=== PATIENT | male | born 1950 | race Caucasian/White ===

== ENCOUNTER 2020-09-22 11:36 | Inpatient (IN) | payer OTHER ==
[~2020-09-22] VITALS: Ht 170.2 cm; Wt 100.5 kg
[2020-09-22 13:42] LABS: Basophils # (auto) 0 10 ^3/uL (0-0.2); Basophils % (auto) 0.2 % (0.0-2.0); Eosinophils # (auto) 0 10 ^3/uL (0-0.8); Eosinophils % (auto) 0.1 % (0.0-7.0); Hematocrit 39.5 % (41.0-53.0); Hemoglobin 13.6 g/dL (13.5-17.5); Lymphocytes # (auto) 1.3 10 ^3/uL (0.4-5.4); Lymphocytes % (auto) 7.5 % (10.0-50.0); Mean Corpuscular Hgb Conc. 34.4 g/dL (32.0-36.0); Monocytes # (auto) 1.2 10 ^3/uL (0-1.3); Monocytes % (auto) 6.8 % (0.0-12.0); Neutrophils # (auto) 14.9 10 ^3/uL (1.6-8.6); Neutrophils % (auto) 85.4 % (37.0-80.0); Nucleated Red Blood Cells % 0.2 %; Platelet Count (auto) 261 10^3/uL (140-450); Red Blood Cells 4.25 10^6/uL (4.5-5.90); Red Cell Distribution Width 14.2 % (11.8-14.3); White Blood Cell 17.4 10^3/uL (4.4-10.8)
[2020-09-22 13:48] LABS: Urine Bacteria FEW /hpf (None Seen); Urine Blood 3+ /uL (Negative); Urine Budding Yeast OCCASIONAL /hpf (None Seen); Urine Specific Gravity 1.032 (1.001-1.035); Urine WBC 12 /hpf (0 - 3)
[2020-09-22 13:57] LABS: Albumin 2.4 g/dL (3.4-5.0); Calcium 9.2 mg/dL (8.5-10.1); Potassium 4.5 mmol/L (3.5-5.1)
[2020-09-22 14:07] LABS: BUN/Creatinine Ratio 23.6; Bilirubin, Total 0.8 mg/dL (0.2-1.0); Total Protein 8.6 g/dL (6.4-8.2)
[2020-09-22] MEDS ORDERED: InsuLIN R (HUMAN) 100 UNITS in SODIUM CHL 0.9% 99 ML IV SCH (17:45)
[2020-09-22] MEDS ORDERED: DEXTROSE (50%) 50ML SYRG IV PRN (17:45)
[2020-09-22] MEDS ORDERED: NITROGLYCERIN 0.4 MG SL TAB SL PRN (17:45)
[2020-09-22] MEDS ORDERED: REMDESIVIR PER PHARMACY 0 ML IV SCH (17:45)
[2020-09-22] MEDS ORDERED: ONDANSETRON HCL 4 MG/2 ML VIAL IV PRN (17:45)
[2020-09-22] MEDS ORDERED: ACETAMINOPHEN 500 MG TAB PO PRN (17:45)
[2020-09-22] MEDS ORDERED: MORPHINE SULF INJ 2 MG/ML SYRINGE 1ML IV PRN (17:45)
[2020-09-22] MEDS ORDERED: INSULIN LANTUS (GLARGINE) 1 /0.01ml (100units/ml) SC ONE (17:45)
[2020-09-22] MEDS: BUDESONIDE (INHALATION) 180 MCG IH IN SCH (18:14)
[2020-09-22] MEDS: ACCU-CHEK COMFORT CURVE STRIP VI SCH ×4 (18:20→22:53)
[2020-09-22] MEDS: LACTATED RINGER'S 1,000 ML IV SCH (18:20)
[2020-09-22 19:46] LABS: Magnesium 2.8 mg/dL (1.6-2.6)
[2020-09-22 19:51] LABS: Phosphorus 4.4 mg/dL (2.5-4.90)
[2020-09-22 20:12] LABS: CRP High Sensitivity 13.6 mg/dL (< 0.3)
[2020-09-22 21:28] LABS: INR 1.18 (0.9-1.15); Partial Thromboplastin Time 27.1 sec (23.0-31.2)
[2020-09-22] MEDS ORDERED: ENOXAPARIN SOD 120 MG/0.8 ML SYRINGE SC SCH (22:00)
[2020-09-22] MEDS: FAMOTIDINE (10MG/ML) 2ML VL IV SCH (22:57)
[2020-09-23] MEDS: ACCU-CHEK COMFORT CURVE STRIP VI SCH ×10 (02:00→21:57)
[2020-09-23] MEDS: MORPHINE SULF INJ 2 MG/ML SYRINGE 1ML IV PRN ×2 (04:00→08:31)
[2020-09-23] MEDS ORDERED: HEPARIN SODIUM (PORCINE) 5000 UNITS/ML 1ML VIAL IV ONE ×2 (05:00→21:45)
[2020-09-23] MEDS ORDERED: HEPARIN SODIUM (PORCINE) 5000 UNITS/ML 1ML VIAL ONE (05:29)
[2020-09-23] MEDS ORDERED: HEPARIN DRIP/D5W 100UNITS/ML 250 ML IV SCH ×4 (05:30→20:00)
[2020-09-23] MEDS: LACTATED RINGER'S 1,000 ML IV SCH ×2 (06:01→16:56)
[2020-09-23 06:07] LABS: Basophils # (auto) 0.1 10 ^3/uL (0-0.2); Basophils % (auto) 0.6 % (0.0-2.0); Eosinophils # (auto) 0.1 10 ^3/uL (0-0.8); Eosinophils % (auto) 0.4 % (0.0-7.0); Hematocrit 39.6 % (41.0-53.0); Hemoglobin 13.7 g/dL (13.5-17.5); Lymphocytes # (auto) 1.2 10 ^3/uL (0.4-5.4); Lymphocytes % (auto) 8.8 % (10.0-50.0); Mean Corpuscular Hemoglobin 31.7 pg (28.0-32.0); Mean Corpuscular Hgb Conc. 34.7 g/dL (32.0-36.0); Mean Corpuscular Volume 91.5 fL (80.0-100.0); Monocytes # (auto) 0.9 10 ^3/uL (0-1.3); Monocytes % (auto) 6.5 % (0.0-12.0); Neutrophils # (auto) 11.4 10 ^3/uL (1.6-8.6); Neutrophils % (auto) 83.7 % (37.0-80.0); Nucleated Red Blood Cells % 0.1 %; Platelet Count (auto) 124 10^3/uL (140-450); Red Blood Cells 4.33 10^6/uL (4.5-5.90); Red Cell Distribution Width 14.2 % (11.8-14.3); White Blood Cell 13.7 10^3/uL (4.4-10.8)
[2020-09-23] MEDS: BUDESONIDE (INHALATION) 180 MCG IH IN SCH ×2 (06:32→21:35)
[2020-09-23 06:52] LABS: INR 1.24 (0.9-1.15); Partial Thromboplastin Time 31.9 sec (23.0-31.2)
[2020-09-23] MEDS ORDERED: IVERMECTIN 3 MG TAB PO ONE (07:00)
[2020-09-23] MEDS: ASCORBIC ACID 1,000 MG TAB PO SCH (07:57)
[2020-09-23] MEDS: ZINC SULFATE 220mg CAP or TAB PO SCH (07:57)
[2020-09-23] MEDS: CHOLECALCIFEROL (VITD3) 2,000 UNIT CAP/TAB PO SCH (07:57)
[2020-09-23] MEDS: FAMOTIDINE (10MG/ML) 2ML VL IV SCH (07:57)
[2020-09-23] MEDS: DexAMETHasone SOD PHOS 10MG/1ML VIAL INJ IV SCH (07:57)
[2020-09-23] MEDS ORDERED: LIDOCAINE 2%HCL (LOCAL ANESTH.) INJ 20ML MDV ONE ×2 (08:18→10:26)
[2020-09-23] MEDS ORDERED: IODIXANOL 320MG/ML 100ML BTL IV ONE (08:18)
[2020-09-23] MEDS ORDERED: cefTRIAXone 1GM/50ML D5W 50 ML IV SCH (09:00)
[2020-09-23] MEDS ORDERED: INSULIN LANTUS (GLARGINE) 1 /0.01ml (100units/ml) SC SCH (10:00)
[2020-09-23] MEDS ORDERED: AZITHROMYCIN 500MG/ 250ML 250 ML IV SCH (10:00)
[2020-09-23 10:07] LABS: Albumin 2.1 g/dL (3.4-5.0); Calcium 8.7 mg/dL (8.5-10.1); Potassium 3.9 mmol/L (3.5-5.1)
[2020-09-23 10:12] LABS: BUN/Creatinine Ratio 26.8; Bilirubin, Total 0.7 mg/dL (0.2-1.0); Total Protein 7.4 g/dL (6.4-8.2)
[2020-09-23] MEDS ORDERED: ANGIOMAX 250 MG VIAL IV ONE ×2 (10:27→12:09)
[2020-09-23] MEDS ORDERED: VERAPAMIL 2.5MG/ML INJ 2ML VIAL IV ONE (10:27)
[2020-09-23] MEDS ORDERED: MIDAZOLAM HCL 1MG/1ML-2 ML VIAL ONE (10:28)
[2020-09-23] MEDS ORDERED: fentaNYL CITRATE 100 MCG/2 ML VL ONE (10:28)
[2020-09-23] MEDS ORDERED: SODIUM CHL 0.9% 50 ML ONE ×2 (10:29→12:09)
[2020-09-23] MEDS ORDERED: DEXTROSE (50%) 50ML SYRG IV PRN ×2 (11:00→19:15)
[2020-09-23] MEDS: InsuLIN REG 1unit/0.01ml Soln (100units/ml) SC SCH ×2 (11:30→17:44)
[2020-09-23] MEDS ORDERED: EPTIFIBATIDE INJ (2MG/ML) 10ML VIAL IV ONE ×2 (12:27→12:30)
[2020-09-23] MEDS ORDERED: NITROGLYCERIN 0.4 MG SL TAB SL PRN (13:00)
[2020-09-23] MEDS ORDERED: MORPHINE SULF INJ 2 MG/ML SYRINGE 1ML IV PRN (13:00)
[2020-09-23] MEDS ORDERED: ACETAMINOPHEN 500 MG TAB PO PRN (13:00)
[2020-09-23] MEDS ORDERED: EPTIFIBATIDE DRIP(0.75MG/ML) 100 ML IV SCH (13:00)
[2020-09-23] MEDS ORDERED: EPTIFIBATIDE DRIP(0.75MG/ML) 100 ML IV ONE (13:19)
[2020-09-23] MEDS ORDERED: REMDESIVIR 200 MG in NS 210ml LOADING DOSE ADULT IV ONE (15:00)
[2020-09-23 16:00] VITALS: BP 101/59
[2020-09-23] MEDS ORDERED: TEST1INJ9 (16:33)
[2020-09-23] MEDS ORDERED: InsuLIN REG 1unit/0.01ml Soln (100units/ml) SC ONE (17:45)
[2020-09-23] MEDS ORDERED: SODIUM CHLORIDE 0.9% 1,000 ML IV ONE (19:15)
[2020-09-23] MEDS ORDERED: cefTRIAXone 1GM/50ML D5W 50 ML IV ONE (19:30)
[2020-09-23] MEDS: ALBUTEROL SULF HFA 90MCG INH 200DOSE IN PRN (21:36)
[2020-09-23] MEDS ORDERED: InsuLIN REG 1unit/0.01ml Soln (100units/ml) SC SCH (22:00)
[2020-09-23 22:17] LABS: INR 1.41 (0.9-1.15); Partial Thromboplastin Time 52.6 sec (23.0-31.2)
[2020-09-23] MEDS: DOXYCYCLINE 100MG/250ML 250 ML IV SCH (22:40)
[2020-09-23] MEDS: HEPARIN DRIP/D5W 100UNITS/ML 250 ML IV SCH (22:56)
[2020-09-24] VITALS (11 sets, daily range): BP systolic 106–128; BP diastolic 65–77
[2020-09-24] MEDS: InsuLIN REG 1unit/0.01ml Soln (100units/ml) SC SCH ×4 (00:11→16:53)
[2020-09-24 02:44] LABS: Hematocrit 34.2 % (41.0-53.0); Hemoglobin 11.9 g/dL (13.5-17.5); Mean Corpuscular Hemoglobin 31.9 pg (28.0-32.0); Mean Corpuscular Hgb Conc. 34.9 g/dL (32.0-36.0); Mean Corpuscular Volume 91.2 fL (80.0-100.0); Platelet Count (auto) 209 10^3/uL (140-450); Red Blood Cells 3.75 10^6/uL (4.5-5.90); White Blood Cell 20.5 10^3/uL (4.4-10.8)
[2020-09-24 02:47] LABS: Blast Cells 0; Myelocytes % 0; Promyelocytes % 0; Reactive Lymphocytes 0
[2020-09-24 02:49] LABS: Basophils % (manual) 0 (0.0-2.0); Eosinophils % (manual) 0 (0-7)
[2020-09-24 03:11] LABS: INR 1.41 (0.9-1.15)
[2020-09-24 03:14] LABS: Partial Thromboplastin Time 112.1 sec (23.0-31.2)
[2020-09-24 03:29] LABS: Band Neutrophils % (manual) 23; Lymphocytes % (manual) 12 (10.0-50.0); Metamyelocytes % 3; Monocytes % (manual) 1 (0-12)
[2020-09-24] MEDS: ACCU-CHEK COMFORT CURVE STRIP VI SCH ×3 (06:19→16:51)
[2020-09-24] MEDS: BUDESONIDE (INHALATION) 180 MCG IH IN SCH ×3 (06:32→20:08)
[2020-09-24] MEDS: ALBUTEROL SULF HFA 90MCG INH 200DOSE IN PRN ×2 (06:32→20:09)
[2020-09-24 07:01] LABS: Hematocrit 34.1 % (41.0-53.0); Mean Corpuscular Hemoglobin 32.3 pg (28.0-32.0); Mean Corpuscular Hgb Conc. 35.3 g/dL (32.0-36.0); Mean Corpuscular Volume 91.4 fL (80.0-100.0); Platelet Count (auto) 197 10^3/uL (140-450); Red Blood Cells 3.73 10^6/uL (4.5-5.90); Red Cell Distribution Width 14.3 % (11.8-14.3); White Blood Cell 19.4 10^3/uL (4.4-10.8)
[2020-09-24 07:13] LABS: Basophils % (manual) 0 (0.0-2.0); Blast Cells 0; Eosinophils % (manual) 0 (0-7); Promyelocytes % 0; Reactive Lymphocytes 0
[2020-09-24 07:18] LABS: INR 1.34 (0.9-1.15); Partial Thromboplastin Time 62.4 sec (23.0-31.2)
[2020-09-24 07:29] LABS: Albumin 2.1 g/dL (3.4-5.0); Potassium 4.2 mmol/L (3.5-5.1)
[2020-09-24 07:33] LABS: Bilirubin, Total 0.4 mg/dL (0.2-1.0); Total Protein 6.7 g/dL (6.4-8.2)
[2020-09-24 08:57] LABS: Band Neutrophils % (manual) 3; Lymphocytes % (manual) 12 (10.0-50.0); Metamyelocytes % 1; Monocytes % (manual) 5 (0-12); Myelocytes % 1
[2020-09-24] MEDS: DOXYCYCLINE 100MG/250ML 250 ML IV SCH ×2 (09:03→19:28)
[2020-09-24] MEDS: DexAMETHasone SOD PHOS 10MG/1ML VIAL INJ IV SCH (09:03)
[2020-09-24] MEDS: FAMOTIDINE (10MG/ML) 2ML VL IV SCH (09:04)
[2020-09-24] MEDS: ZINC SULFATE 220mg CAP or TAB PO SCH (09:04)
[2020-09-24] MEDS: ASCORBIC ACID 1,000 MG TAB PO SCH (09:04)
[2020-09-24] MEDS: CHOLECALCIFEROL (VITD3) 2,000 UNIT CAP/TAB PO SCH (09:04)
[2020-09-24 09:52] LABS: Hematocrit 30.9 % (41.0-53.0); Hemoglobin 10.6 g/dL (13.5-17.5); Mean Corpuscular Hemoglobin 31.6 pg (28.0-32.0); Mean Corpuscular Hgb Conc. 34.3 g/dL (32.0-36.0); Mean Corpuscular Volume 92.2 fL (80.0-100.0); Platelet Count (auto) 165 10^3/uL (140-450); Red Blood Cells 3.35 10^6/uL (4.5-5.90); White Blood Cell 18.3 10^3/uL (4.4-10.8)
[2020-09-24 10:01] LABS: Basophils % (manual) 0 (0.0-2.0); Blast Cells 0; Eosinophils % (manual) 0 (0-7); Metamyelocytes % 0; Myelocytes % 0; Promyelocytes % 0; Reactive Lymphocytes 0
[2020-09-24 10:16] LABS: INR 1.35 (0.9-1.15)
[2020-09-24 10:18] LABS: Partial Thromboplastin Time 95.7 sec (23.0-31.2)
[2020-09-24 10:32] LABS: Band Neutrophils % (manual) 1; Lymphocytes % (manual) 9 (10.0-50.0); Monocytes % (manual) 10 (0-12)
[2020-09-24] MEDS: INSULIN LANTUS (GLARGINE) 1 /0.01ml (100units/ml) SC SCH (11:13)
[2020-09-24] MEDS: cefTRIAXone 1GM/50ML D5W 50 ML IV SCH (11:51)
[2020-09-24] MEDS ORDERED: REMDESIVIR 100mg 100 MG in SODIUM CHL 0.9% 230 ML IV SCH (15:00)
[2020-09-24] MEDS: HEPARIN DRIP/D5W 100UNITS/ML 250 ML IV SCH (15:45)
[2020-09-24] MEDS ORDERED: REMDESIVIR 100mg 50 MG in SODIUM CHL 0.9% 240 ML IV ONE (16:00)
[2020-09-24 18:31] LABS: INR 1.24 (0.9-1.15); Partial Thromboplastin Time 61.9 sec (23.0-31.2)
[2020-09-24] MEDS: HYDROcodone-ACET 5/325MG TAB PO PRN (20:22)
[2020-09-25] VITALS: BP 128/69
[2020-09-25] MEDS: InsuLIN REG 1unit/0.01ml Soln (100units/ml) SC SCH ×5 (00:09→23:41)
[2020-09-25 01:20] LABS: INR 1.19 (0.9-1.15); Partial Thromboplastin Time 64.3 sec (23.0-31.2)
[2020-09-25] MEDS: HEPARIN DRIP/D5W 100UNITS/ML 250 ML IV SCH ×2 (01:50→09:26)
[2020-09-25] MEDS: ACCU-CHEK COMFORT CURVE STRIP VI SCH ×5 (05:47→23:41)
[2020-09-25] MEDS: ALBUTEROL SULF HFA 90MCG INH 200DOSE IN PRN ×2 (06:30→22:14)
[2020-09-25 06:46] LABS: Potassium 3.9 mmol/L (3.5-5.1)
[2020-09-25 06:47] LABS: Hematocrit 27.8 % (41.0-53.0); Hemoglobin 9.6 g/dL (13.5-17.5); Mean Corpuscular Hemoglobin 31.4 pg (28.0-32.0); Mean Corpuscular Hgb Conc. 34.4 g/dL (32.0-36.0); Mean Corpuscular Volume 91.2 fL (80.0-100.0); Platelet Count (auto) 169 10^3/uL (140-450); Red Blood Cells 3.05 10^6/uL (4.5-5.90); Red Cell Distribution Width 14.3 % (11.8-14.3); White Blood Cell 14.5 10^3/uL (4.4-10.8)
[2020-09-25 06:56] LABS: Basophils % (manual) 0 (0.0-2.0); Blast Cells 0; Eosinophils % (manual) 0 (0-7); Promyelocytes % 0; Reactive Lymphocytes 0
[2020-09-25 07:24] LABS: BUN/Creatinine Ratio 26.3; Bilirubin, Total 0.4 mg/dL (0.2-1.0); Calcium 7.9 mg/dL (8.5-10.1)
[2020-09-25] MEDS: DOXYCYCLINE 100MG/250ML 250 ML IV SCH ×2 (07:30→19:46)
[2020-09-25 07:57] LABS: INR 1.2 (0.9-1.15); Partial Thromboplastin Time 64.3 sec (23.0-31.2)
[2020-09-25 08:00] VITALS: BP 111/64
[2020-09-25] MEDS: FAMOTIDINE (10MG/ML) 2ML VL IV SCH (09:10)
[2020-09-25] MEDS: cefTRIAXone 1GM/50ML D5W 50 ML IV SCH (09:10)
[2020-09-25] MEDS: DexAMETHasone SOD PHOS 10MG/1ML VIAL INJ IV SCH (09:10)
[2020-09-25] MEDS: ASCORBIC ACID 1,000 MG TAB PO SCH (09:11)
[2020-09-25] MEDS: ZINC SULFATE 220mg CAP or TAB PO SCH (09:11)
[2020-09-25] MEDS: CHOLECALCIFEROL (VITD3) 2,000 UNIT CAP/TAB PO SCH (09:11)
[2020-09-25] MEDS: HYDROcodone-ACET 5/325MG TAB PO PRN (12:30)
[2020-09-25] MEDS: INSULIN LANTUS (GLARGINE) 1 /0.01ml (100units/ml) SC SCH (12:57)
[2020-09-25 13:45] LABS: Band Neutrophils % (manual) 4; Lymphocytes % (manual) 6 (10.0-50.0); Metamyelocytes % 1; Monocytes % (manual) 4 (0-12); Myelocytes % 3
[2020-09-25] MEDS ORDERED: MORPHINE SULF INJ 2 MG/ML SYRINGE 1ML IV PRN (14:30)
[2020-09-25 16:00] VITALS: BP 118/64
[2020-09-25] MEDS: MORPHINE SULF INJ 2 MG/ML SYRINGE 1ML IV PRN (20:28)
[2020-09-25] MEDS: BUDESONIDE (INHALATION) 180 MCG IH IN SCH (22:14)
[2020-09-26] VITALS: BP 124/66
[2020-09-26] MEDS: HEPARIN DRIP/D5W 100UNITS/ML 250 ML IV SCH ×2 (02:29→11:34)
[2020-09-26] MEDS: MORPHINE SULF INJ 2 MG/ML SYRINGE 1ML IV PRN ×3 (02:30→23:41)
[2020-09-26] MEDS: InsuLIN REG 1unit/0.01ml Soln (100units/ml) SC SCH ×3 (05:13→17:45)
[2020-09-26] MEDS: ACCU-CHEK COMFORT CURVE STRIP VI SCH ×4 (05:13→23:41)
[2020-09-26] MEDS: ALBUTEROL SULF HFA 90MCG INH 200DOSE IN PRN ×2 (06:50→20:14)
[2020-09-26] MEDS: BUDESONIDE (INHALATION) 180 MCG IH IN SCH ×2 (06:50→20:14)
[2020-09-26] MEDS: DOXYCYCLINE 100MG/250ML 250 ML IV SCH ×2 (06:55→19:30)
[2020-09-26 08:00] VITALS: BP 113/58
[2020-09-26] MEDS: cefTRIAXone 1GM/50ML D5W 50 ML IV SCH (08:47)
[2020-09-26 09:35] LABS: INR 1.15 (0.9-1.15); Partial Thromboplastin Time 47.4 sec (23.0-31.2)
[2020-09-26 09:36] LABS: Hematocrit 28.6 % (41.0-53.0); Hemoglobin 9.8 g/dL (13.5-17.5); Mean Corpuscular Hemoglobin 31.1 pg (28.0-32.0); Mean Corpuscular Hgb Conc. 34.2 g/dL (32.0-36.0); Mean Corpuscular Volume 90.9 fL (80.0-100.0); Platelet Count (auto) 255 10^3/uL (140-450); Red Blood Cells 3.14 10^6/uL (4.5-5.90); Red Cell Distribution Width 13.8 % (11.8-14.3); White Blood Cell 20.1 10^3/uL (4.4-10.8)
[2020-09-26 09:39] LABS: Potassium 3.6 mmol/L (3.5-5.1)
[2020-09-26 09:46] LABS: Basophils % (manual) 0 (0.0-2.0); Blast Cells 0; Promyelocytes % 0; Reactive Lymphocytes 0
[2020-09-26 09:47] LABS: Albumin 2.2 g/dL (3.4-5.0); BUN/Creatinine Ratio 23.5; Bilirubin, Total 0.5 mg/dL (0.2-1.0); Calcium 7.8 mg/dL (8.5-10.1); Total Protein 6.6 g/dL (6.4-8.2)
[2020-09-26] MEDS: ASCORBIC ACID 1,000 MG TAB PO SCH (10:25)
[2020-09-26] MEDS: ZINC SULFATE 220mg CAP or TAB PO SCH (10:25)
[2020-09-26] MEDS: CHOLECALCIFEROL (VITD3) 2,000 UNIT CAP/TAB PO SCH (10:26)
[2020-09-26] MEDS: FAMOTIDINE (10MG/ML) 2ML VL IV SCH (10:26)
[2020-09-26] MEDS: DexAMETHasone SOD PHOS 10MG/1ML VIAL INJ IV SCH (10:26)
[2020-09-26] MEDS: INSULIN LANTUS (GLARGINE) 1 /0.01ml (100units/ml) SC SCH (10:26)
[2020-09-26] MEDS ORDERED: HYDROmorphone HCL 2 MG/ML VL IV ONE (10:30)
[2020-09-26 13:20] LABS: Band Neutrophils % (manual) 3; Eosinophils % (manual) 2 (0-7); Metamyelocytes % 2; Monocytes % (manual) 2 (0-12); Myelocytes % 4
[2020-09-26 13:21] LABS: Lymphocytes % (manual) 4 (10.0-50.0)
[2020-09-26 15:31] VITALS: BP 158/75
[2020-09-26] MEDS: REMDESIVIR 100mg 100 MG in SODIUM CHL 0.9% 230 ML IV SCH (15:31)
[2020-09-26 16:01] VITALS: BP 120/77
[2020-09-26 17:06] VITALS: BP 147/84
[2020-09-26] MEDS ORDERED: InsuLIN REG 1unit/0.01ml Soln (100units/ml) SC ONE (18:00)
[2020-09-26 18:36] LABS: INR 1.12 (0.9-1.15); Partial Thromboplastin Time 69.9 sec (23.0-31.2)
[2020-09-27] VITALS: BP 130/7
[2020-09-27 01:31] LABS: INR 1.12 (0.9-1.15)
[2020-09-27] MEDS: InsuLIN REG 1unit/0.01ml Soln (100units/ml) SC SCH ×4 (01:32→18:06)
[2020-09-27 01:33] LABS: Partial Thromboplastin Time 80.1 sec (23.0-31.2)
[2020-09-27] MEDS: HEPARIN DRIP/D5W 100UNITS/ML 250 ML IV SCH ×3 (04:45→12:30)
[2020-09-27] MEDS: ACCU-CHEK COMFORT CURVE STRIP VI SCH ×3 (05:32→18:05)
[2020-09-27] MEDS: DOXYCYCLINE 100MG/250ML 250 ML IV SCH (06:39)
[2020-09-27] MEDS: ALBUTEROL SULF HFA 90MCG INH 200DOSE IN PRN ×2 (07:31→20:33)
[2020-09-27] MEDS: BUDESONIDE (INHALATION) 180 MCG IH IN SCH ×2 (07:31→20:32)
[2020-09-27 08:00] VITALS: BP 135/81
[2020-09-27 08:20] LABS: Basophils # (auto) 0.1 10 ^3/uL (0-0.2); Basophils % (auto) 0.3 % (0.0-2.0); Eosinophils # (auto) 0.1 10 ^3/uL (0-0.8); Eosinophils % (auto) 0.3 % (0.0-7.0); Hematocrit 25.7 % (41.0-53.0); Hemoglobin 8.8 g/dL (13.5-17.5); Lymphocytes # (auto) 1.7 10 ^3/uL (0.4-5.4); Mean Corpuscular Hemoglobin 31.2 pg (28.0-32.0); Mean Corpuscular Hgb Conc. 34.4 g/dL (32.0-36.0); Mean Corpuscular Volume 90.6 fL (80.0-100.0); Monocytes # (auto) 1.5 10 ^3/uL (0-1.3); Monocytes % (auto) 6.1 % (0.0-12.0); Neutrophils % (auto) 86.3 % (37.0-80.0); Nucleated Red Blood Cells % 0.1 %; Platelet Count (auto) 241 10^3/uL (140-450); Red Blood Cells 2.84 10^6/uL (4.5-5.90); Red Cell Distribution Width 14.5 % (11.8-14.3); White Blood Cell 24.3 10^3/uL (4.4-10.8)
[2020-09-27 08:37] LABS: INR 1.1 (0.9-1.15); Partial Thromboplastin Time 66.7 sec (23.0-31.2)
[2020-09-27 08:42] LABS: Calcium 7.8 mg/dL (8.5-10.1); Potassium 3.9 mmol/L (3.5-5.1)
[2020-09-27 08:46] LABS: Bilirubin, Total 0.5 mg/dL (0.2-1.0); Total Protein 6.4 g/dL (6.4-8.2)
[2020-09-27] MEDS: CHOLECALCIFEROL (VITD3) 2,000 UNIT CAP/TAB PO SCH (10:00)
[2020-09-27] MEDS: cefTRIAXone 1GM/50ML D5W 50 ML IV SCH (10:00)
[2020-09-27] MEDS: FAMOTIDINE (10MG/ML) 2ML VL IV SCH (10:00)
[2020-09-27] MEDS: INSULIN LANTUS (GLARGINE) 1 /0.01ml (100units/ml) SC SCH (10:00)
[2020-09-27] MEDS: ZINC SULFATE 220mg CAP or TAB PO SCH (10:00)
[2020-09-27] MEDS: ASCORBIC ACID 1,000 MG TAB PO SCH (10:00)
[2020-09-27] MEDS: DexAMETHasone SOD PHOS 10MG/1ML VIAL INJ IV SCH (10:00)
[2020-09-27 12:38] LABS: INR 1.08 (0.9-1.15)
[2020-09-27] MEDS ORDERED: PIPERACILLIN-TAZOB 3.375GM 100 ML IV ONE (13:00)
[2020-09-27] MEDS: PIPERACILLIN-TAZOB 3.375GM 100 ML IV SCH ×2 (14:02→21:41)
[2020-09-27] MEDS: HYDROmorphone HCL 2 MG/ML VL IV PRN ×2 (14:02→22:44)
[2020-09-27] MEDS: REMDESIVIR 100mg 100 MG in SODIUM CHL 0.9% 230 ML IV SCH (15:10)
[2020-09-27 16:00] VITALS: BP 133/71
[2020-09-27 22:20] LABS: INR 1.08 (0.9-1.15)
[2020-09-28] VITALS: BP 122/68
[2020-09-28] MEDS: ACCU-CHEK COMFORT CURVE STRIP VI SCH ×4 (00:40→18:00)
[2020-09-28] MEDS: InsuLIN REG 1unit/0.01ml Soln (100units/ml) SC SCH ×4 (00:47→18:00)
[2020-09-28] MEDS: HYDROmorphone HCL 2 MG/ML VL IV PRN ×3 (03:50→22:22)
[2020-09-28] MEDS: HEPARIN DRIP/D5W 100UNITS/ML 250 ML IV SCH ×3 (06:00→16:30)
[2020-09-28] MEDS: PIPERACILLIN-TAZOB 3.375GM 100 ML IV SCH ×3 (06:01→22:23)
[2020-09-28] MEDS: ALBUTEROL SULF HFA 90MCG INH 200DOSE IN PRN (07:15)
[2020-09-28] MEDS: BUDESONIDE (INHALATION) 180 MCG IH IN SCH ×2 (07:15→22:00)
[2020-09-28 08:00] VITALS: BP 130/72
[2020-09-28 09:38] LABS: Basophils # (auto) 0.1 10 ^3/uL (0-0.2); Basophils % (auto) 0.3 % (0.0-2.0); Eosinophils # (auto) 0 10 ^3/uL (0-0.8); Eosinophils % (auto) 0.1 % (0.0-7.0); Hematocrit 24.8 % (41.0-53.0); Hemoglobin 8.3 g/dL (13.5-17.5); Mean Corpuscular Hgb Conc. 33.6 g/dL (32.0-36.0); Monocytes # (auto) 1.3 10 ^3/uL (0-1.3); Red Cell Distribution Width 14.6 % (11.8-14.3)
[2020-09-28 09:40] LABS: Lymphocytes # (auto) 1.3 10 ^3/uL (0.4-5.4); Lymphocytes % (auto) 5.5 % (10.0-50.0); Mean Corpuscular Volume 92.4 fL (80.0-100.0); Monocytes % (auto) 5.4 % (0.0-12.0); Neutrophils # (auto) 21.1 10 ^3/uL (1.6-8.6); Neutrophils % (auto) 88.7 % (37.0-80.0); Platelet Count (auto) 275 10^3/uL (140-450); Red Blood Cells 2.68 10^6/uL (4.5-5.90); White Blood Cell 23.8 10^3/uL (4.4-10.8)
[2020-09-28 09:55] LABS: BUN/Creatinine Ratio 20.3; Calcium 7.9 mg/dL (8.5-10.1); Potassium 4.3 mmol/L (3.5-5.1)
[2020-09-28] MEDS: DexAMETHasone SOD PHOS 10MG/1ML VIAL INJ IV SCH (11:06)
[2020-09-28] MEDS: FAMOTIDINE (10MG/ML) 2ML VL IV SCH (11:06)
[2020-09-28 11:07] LABS: INR 1.08 (0.9-1.15); Partial Thromboplastin Time 57.5 sec (23.0-31.2)
[2020-09-28] MEDS: ZINC SULFATE 220mg CAP or TAB PO SCH (11:07)
[2020-09-28] MEDS: ASCORBIC ACID 1,000 MG TAB PO SCH (11:07)
[2020-09-28] MEDS: CHOLECALCIFEROL (VITD3) 2,000 UNIT CAP/TAB PO SCH (11:07)
[2020-09-28] MEDS: INSULIN LANTUS (GLARGINE) 1 /0.01ml (100units/ml) SC SCH (11:16)
[2020-09-28] MEDS: REMDESIVIR 100mg 100 MG in SODIUM CHL 0.9% 230 ML IV SCH (14:19)
[2020-09-28] MEDS: SODIUM CHLORIDE 0.9% 1,000 ML IV SCH (15:00)
[2020-09-28 16:00] VITALS: BP 106/57
[2020-09-28 16:59] LABS: INR 1.08 (0.9-1.15)
[2020-09-28 17:03] LABS: Partial Thromboplastin Time 70.9 sec (23.0-31.2)
[2020-09-28] MEDS: LINEZOLID 600MG/300ML 300 ML IV SCH (20:28)
[2020-09-28 23:47] LABS: INR 1.06 (0.9-1.15); Partial Thromboplastin Time 49.3 sec (23.0-31.2)
[2020-09-29] VITALS: BP 130/66
[2020-09-29] MEDS: ACCU-CHEK COMFORT CURVE STRIP VI SCH ×4 (00:16→23:19)
[2020-09-29] MEDS: InsuLIN REG 1unit/0.01ml Soln (100units/ml) SC SCH ×4 (00:24→23:16)
[2020-09-29] MEDS: HEPARIN DRIP/D5W 100UNITS/ML 250 ML IV SCH (00:43)
[2020-09-29] MEDS: PIPERACILLIN-TAZOB 3.375GM 100 ML IV SCH ×3 (05:49→23:07)
[2020-09-29 07:08] LABS: Hematocrit 24.3 % (41.0-53.0); Hemoglobin 8.6 g/dL (13.5-17.5); Mean Corpuscular Hemoglobin 32.3 pg (28.0-32.0); Mean Corpuscular Hgb Conc. 35.3 g/dL (32.0-36.0); Mean Corpuscular Volume 91.5 fL (80.0-100.0); Platelet Count (auto) 273 10^3/uL (140-450); Red Blood Cells 2.65 10^6/uL (4.5-5.90); Red Cell Distribution Width 14.4 % (11.8-14.3); White Blood Cell 19.4 10^3/uL (4.4-10.8)
[2020-09-29 07:21] LABS: Basophils % (manual) 0 (0.0-2.0); Blast Cells 0; Promyelocytes % 0; Reactive Lymphocytes 0
[2020-09-29 07:25] LABS: INR 1.09 (0.9-1.15); Partial Thromboplastin Time 63.1 sec (23.0-31.2)
[2020-09-29 07:37] LABS: Albumin 1.8 g/dL (3.4-5.0); Potassium 4.3 mmol/L (3.5-5.1)
[2020-09-29 07:40] LABS: BUN/Creatinine Ratio 17.7
[2020-09-29 07:42] LABS: Bilirubin, Total 0.6 mg/dL (0.2-1.0); Total Protein 6.2 g/dL (6.4-8.2)
[2020-09-29 07:55] LABS: Band Neutrophils % (manual) 3; Eosinophils % (manual) 1 (0-7); Lymphocytes % (manual) 10 (10.0-50.0); Metamyelocytes % 3; Monocytes % (manual) 6 (0-12); Myelocytes % 1
[2020-09-29] MEDS: LINEZOLID 600MG/300ML 300 ML IV SCH ×2 (08:02→20:45)
[2020-09-29 08:12] VITALS: BP 140/69
[2020-09-29] MEDS ORDERED: TETRACAINE 1% INJ 2 ML VIAL IJ ONE (09:11)
[2020-09-29] MEDS ORDERED: MIDAZOLAM HCL 1MG/1ML-2 ML VIAL ONE (09:16)
[2020-09-29] MEDS ORDERED: ONDANSETRON HCL 4 MG/2 ML VIAL ONE (09:17)
[2020-09-29] MEDS ORDERED: PROPOFOL 10 MG/ML 20 ML IV ONE (09:17)
[2020-09-29] MEDS ORDERED: LIDOCAINE 2% (LOCAL ANESTH.) PF 5ml SDV ONE (09:17)
[2020-09-29] MEDS ORDERED: GLYCOPYRROLATE 0.2 MG/ML 1ML VIAL ONE (09:17)
[2020-09-29] MEDS ORDERED: PHENYLEPHRINE HCL 10 MG/ML VL ONE (09:21)
[2020-09-29] MEDS ORDERED: ePHEDrine SULFATE 50 MG/ML AMP ONE (09:21)
[2020-09-29] MEDS: FAMOTIDINE (10MG/ML) 2ML VL IV SCH (09:24)
[2020-09-29] MEDS: ZINC SULFATE 220mg CAP or TAB PO SCH (09:24)
[2020-09-29] MEDS: CHOLECALCIFEROL (VITD3) 2,000 UNIT CAP/TAB PO SCH (09:24)
[2020-09-29] MEDS: DexAMETHasone SOD PHOS 10MG/1ML VIAL INJ IV SCH (09:24)
[2020-09-29] MEDS: ASCORBIC ACID 1,000 MG TAB PO SCH (09:24)
[2020-09-29] MEDS: INSULIN LANTUS (GLARGINE) 1 /0.01ml (100units/ml) SC SCH (09:25)
[2020-09-29] MEDS: BUDESONIDE (INHALATION) 180 MCG IH IN SCH ×2 (10:08→20:19)
[2020-09-29] MEDS: ALBUTEROL SULF HFA 90MCG INH 200DOSE IN PRN ×2 (10:09→20:19)
[2020-09-29] MEDS: SODIUM CHLORIDE 0.9% 1,000 ML IV SCH (10:30)
[2020-09-29] MEDS ORDERED: POVIDONE IODINE 10 % TOPICAL OINT 30GM TOP ONE (11:17)
[2020-09-29] MEDS ORDERED: HYDROmorphone HCL 2 MG/ML VL IV PRN (12:30)
[2020-09-29] MEDS ORDERED: ONDANSETRON HCL 4 MG/2 ML VIAL IV PRN (12:30)
[2020-09-29 12:43] VITALS: BP 118/72
[2020-09-29] MEDS ORDERED: DEXTROSE (50%) 50ML SYRG IV PRN (12:45)
[2020-09-29] MEDS: HYDROmorphone HCL 2 MG/ML VL IV PRN (14:14)
[2020-09-29 16:00] VITALS: BP 155/73
[2020-09-29] MEDS: OXYCODONE W/ ACETAMINOPHEN 5/325MG TABLET PO PRN (20:46)
[2020-09-29 22:58] LABS: INR 1.06 (0.9-1.15); Partial Thromboplastin Time 26.6 sec (23.0-31.2)
[2020-09-30] VITALS: BP 150/66
[2020-09-30] MEDS: OXYCODONE W/ ACETAMINOPHEN 5/325MG TABLET PO PRN ×3 (01:14→11:53)
[2020-09-30] MEDS: PIPERACILLIN-TAZOB 3.375GM 100 ML IV SCH ×3 (06:14→23:10)
[2020-09-30] MEDS: InsuLIN REG 1unit/0.01ml Soln (100units/ml) SC SCH ×4 (06:20→23:16)
[2020-09-30] MEDS: ACCU-CHEK COMFORT CURVE STRIP VI SCH ×4 (06:20→23:17)
[2020-09-30] MEDS: SODIUM CHLORIDE 0.9% 1,000 ML IV SCH (06:21)
[2020-09-30] MEDS: ALBUTEROL SULF HFA 90MCG INH 200DOSE IN PRN ×3 (06:45→19:50)
[2020-09-30] MEDS: BUDESONIDE (INHALATION) 180 MCG IH IN SCH ×2 (06:45→19:50)
[2020-09-30 07:30] LABS: Hematocrit 24.6 % (41.0-53.0); Hemoglobin 8.7 g/dL (13.5-17.5); Mean Corpuscular Hemoglobin 32.5 pg (28.0-32.0); Mean Corpuscular Hgb Conc. 35.4 g/dL (32.0-36.0); Mean Corpuscular Volume 91.8 fL (80.0-100.0); Platelet Count (auto) 319 10^3/uL (140-450); Red Blood Cells 2.68 10^6/uL (4.5-5.90); Red Cell Distribution Width 14.9 % (11.8-14.3); White Blood Cell 16.5 10^3/uL (4.4-10.8)
[2020-09-30 07:37] LABS: Band Neutrophils % (manual) 0; Basophils % (manual) 0 (0.0-2.0); Blast Cells 0; Eosinophils % (manual) 0 (0-7); Promyelocytes % 0; Reactive Lymphocytes 0
[2020-09-30 07:45] LABS: Albumin 1.9 g/dL (3.4-5.0); Calcium 8.2 mg/dL (8.5-10.1); Potassium 4.4 mmol/L (3.5-5.1)
[2020-09-30 07:50] LABS: BUN/Creatinine Ratio 15.7; Bilirubin, Total 0.8 mg/dL (0.2-1.0); Total Protein 6.6 g/dL (6.4-8.2)
[2020-09-30 08:00] VITALS: BP 125/82
[2020-09-30 08:19] LABS: Lymphocytes % (manual) 13 (10.0-50.0); Metamyelocytes % 2; Monocytes % (manual) 2 (0-12); Myelocytes % 1
[2020-09-30] MEDS: FAMOTIDINE (10MG/ML) 2ML VL IV SCH (09:27)
[2020-09-30] MEDS: CHOLECALCIFEROL (VITD3) 2,000 UNIT CAP/TAB PO SCH (09:28)
[2020-09-30] MEDS: ZINC SULFATE 220mg CAP or TAB PO SCH (09:28)
[2020-09-30] MEDS: ASCORBIC ACID 1,000 MG TAB PO SCH (09:28)
[2020-09-30] MEDS: LINEZOLID 600MG/300ML 300 ML IV SCH ×2 (09:39→21:07)
[2020-09-30] MEDS: INSULIN LANTUS (GLARGINE) 1 /0.01ml (100units/ml) SC SCH ×2 (09:46→23:16)
[2020-09-30] MEDS ORDERED: METH-532 PO (12:21)
[2020-09-30] MEDS ORDERED: CEPH250C PO (12:21)
[2020-09-30] MEDS ORDERED: ONDA-188 PO (12:21)
[2020-09-30] MEDS ORDERED: APIX2.5T PO (12:21)
[2020-09-30] MEDS ORDERED: LISI-646 PO (12:21)
[2020-09-30] MEDS ORDERED: OXY10CRT PO (12:21)
[2020-09-30] MEDS ORDERED: FURO40TA4 PO (12:21)
[2020-09-30] MEDS ORDERED: FENT12DI TD (12:21)
[2020-09-30] MEDS ORDERED: oxyCODONE ER 10 MG TAB PO ONE (14:15)
[2020-09-30] MEDS: oxyCODONE ER 10 MG TAB PO SCH (23:10)
[2020-10-01] VITALS: BP 136/70
[2020-10-01] MEDS: SODIUM CHLORIDE 0.9% 1,000 ML IV SCH ×2 (02:26→22:41)
[2020-10-01] MEDS: PIPERACILLIN-TAZOB 3.375GM 100 ML IV SCH (05:58)
[2020-10-01] MEDS: InsuLIN REG 1unit/0.01ml Soln (100units/ml) SC SCH ×3 (06:00→17:16)
[2020-10-01] MEDS: ACCU-CHEK COMFORT CURVE STRIP VI SCH ×3 (06:01→17:17)
[2020-10-01] MEDS: ALBUTEROL SULF HFA 90MCG INH 200DOSE IN PRN (07:00)
[2020-10-01] MEDS: BUDESONIDE (INHALATION) 180 MCG IH IN SCH (07:00)
[2020-10-01 07:31] LABS: Basophils # (auto) 0 10 ^3/uL (0-0.2); Basophils % (auto) 0.2 % (0.0-2.0); Eosinophils # (auto) 0.1 10 ^3/uL (0-0.8); Hematocrit 25.8 % (41.0-53.0); Hemoglobin 8.8 g/dL (13.5-17.5); Lymphocytes # (auto) 1.7 10 ^3/uL (0.4-5.4); Lymphocytes % (auto) 14.1 % (10.0-50.0); Mean Corpuscular Hemoglobin 31.5 pg (28.0-32.0); Mean Corpuscular Hgb Conc. 34.3 g/dL (32.0-36.0); Mean Corpuscular Volume 91.9 fL (80.0-100.0); Monocytes # (auto) 0.7 10 ^3/uL (0-1.3); Neutrophils # (auto) 9.7 10 ^3/uL (1.6-8.6); Neutrophils % (auto) 78.7 % (37.0-80.0); Nucleated Red Blood Cells % 0.2 %; Platelet Count (auto) 311 10^3/uL (140-450); Red Cell Distribution Width 15.1 % (11.8-14.3); White Blood Cell 12.3 10^3/uL (4.4-10.8)
[2020-10-01 07:44] LABS: BUN/Creatinine Ratio 13.3; Potassium 4.3 mmol/L (3.5-5.1)
[2020-10-01 08:00] VITALS: BP 119/65
[2020-10-01] MEDS: LINEZOLID 600MG/300ML 300 ML IV SCH ×2 (08:20→20:06)
[2020-10-01] MEDS: FAMOTIDINE (10MG/ML) 2ML VL IV SCH (09:56)
[2020-10-01] MEDS: ZINC SULFATE 220mg CAP or TAB PO SCH (09:56)
[2020-10-01] MEDS: oxyCODONE ER 10 MG TAB PO SCH ×2 (09:57→22:16)
[2020-10-01] MEDS: CHOLECALCIFEROL (VITD3) 2,000 UNIT CAP/TAB PO SCH (09:57)
[2020-10-01] MEDS: ASCORBIC ACID 1,000 MG TAB PO SCH (09:57)
[2020-10-01] MEDS: INSULIN LANTUS (GLARGINE) 1 /0.01ml (100units/ml) SC SCH ×2 (10:06→22:45)
[2020-10-01] MEDS: Glucerna Carbsteady SHAKE Vanilla 8oz PO SCH ×2 (12:18→17:15)
[2020-10-01 16:00] VITALS: BP 131/71
[2020-10-01 23:31] VITALS: BP 121/69
[2020-10-02] MEDS: InsuLIN REG 1unit/0.01ml Soln (100units/ml) SC SCH ×4 (00:53→17:19)
[2020-10-02] MEDS: ACCU-CHEK COMFORT CURVE STRIP VI SCH ×4 (05:47→17:20)
[2020-10-02] MEDS: ALBUTEROL SULF HFA 90MCG INH 200DOSE IN PRN ×2 (07:05→21:55)
[2020-10-02] MEDS: HYDROmorphone HCL 2 MG/ML VL IV PRN ×2 (07:56→15:40)
[2020-10-02] MEDS: Glucerna Carbsteady SHAKE Vanilla 8oz PO SCH ×3 (07:57→17:20)
[2020-10-02] MEDS: LINEZOLID 600MG/300ML 300 ML IV SCH ×2 (07:58→22:10)
[2020-10-02 08:00] VITALS: BP 135/72
[2020-10-02 08:15] LABS: Basophils # (auto) 0 10 ^3/uL (0-0.2); Basophils % (auto) 0.2 % (0.0-2.0); Eosinophils # (auto) 0.2 10 ^3/uL (0-0.8); Eosinophils % (auto) 1.6 % (0.0-7.0); Hematocrit 25.1 % (41.0-53.0); Hemoglobin 8.7 g/dL (13.5-17.5); Lymphocytes # (auto) 1.8 10 ^3/uL (0.4-5.4); Lymphocytes % (auto) 15.9 % (10.0-50.0); Mean Corpuscular Hemoglobin 32.1 pg (28.0-32.0); Mean Corpuscular Hgb Conc. 34.6 g/dL (32.0-36.0); Mean Corpuscular Volume 92.8 fL (80.0-100.0); Monocytes # (auto) 0.6 10 ^3/uL (0-1.3); Monocytes % (auto) 5.3 % (0.0-12.0); Neutrophils # (auto) 8.6 10 ^3/uL (1.6-8.6); Nucleated Red Blood Cells % 0.1 %; Platelet Count (auto) 286 10^3/uL (140-450); Red Blood Cells 2.71 10^6/uL (4.5-5.90); Red Cell Distribution Width 15.3 % (11.8-14.3); White Blood Cell 11.1 10^3/uL (4.4-10.8)
[2020-10-02 08:30] LABS: BUN/Creatinine Ratio 14.9; Calcium 8.1 mg/dL (8.5-10.1); Potassium 3.9 mmol/L (3.5-5.1)
[2020-10-02] MEDS: levoFLOXacin 250MG 50 ML IV SCH (09:23)
[2020-10-02] MEDS: oxyCODONE ER 10 MG TAB PO SCH ×2 (09:24→22:10)
[2020-10-02] MEDS: ZINC SULFATE 220mg CAP or TAB PO SCH (09:24)
[2020-10-02] MEDS: FAMOTIDINE 20 MG TAB PO SCH (09:24)
[2020-10-02] MEDS: ASCORBIC ACID 1,000 MG TAB PO SCH (09:24)
[2020-10-02] MEDS: CHOLECALCIFEROL (VITD3) 2,000 UNIT CAP/TAB PO SCH (09:25)
[2020-10-02] MEDS: INSULIN LANTUS (GLARGINE) 1 /0.01ml (100units/ml) SC SCH ×2 (09:27→22:34)
[2020-10-02] MEDS ORDERED: HEPARIN SODIUM (PORCINE) 5000 UNITS/ML 1ML VIAL IV ONE (14:30)
[2020-10-02 15:24] LABS: Basophils # (auto) 0.1 10 ^3/uL (0-0.2); Basophils % (auto) 0.5 % (0.0-2.0); Eosinophils # (auto) 0.1 10 ^3/uL (0-0.8); Eosinophils % (auto) 1.1 % (0.0-7.0); Hematocrit 23.5 % (41.0-53.0); Hemoglobin 8.1 g/dL (13.5-17.5); Lymphocytes # (auto) 1.4 10 ^3/uL (0.4-5.4); Lymphocytes % (auto) 12.4 % (10.0-50.0); Mean Corpuscular Hgb Conc. 34.3 g/dL (32.0-36.0); Mean Corpuscular Volume 93.3 fL (80.0-100.0); Monocytes # (auto) 0.5 10 ^3/uL (0-1.3); Monocytes % (auto) 4.5 % (0.0-12.0); Neutrophils # (auto) 9.4 10 ^3/uL (1.6-8.6); Neutrophils % (auto) 81.5 % (37.0-80.0); Nucleated Red Blood Cells % 0.1 %; Platelet Count (auto) 223 10^3/uL (140-450); Red Blood Cells 2.52 10^6/uL (4.5-5.90); Red Cell Distribution Width 15.4 % (11.8-14.3); White Blood Cell 11.5 10^3/uL (4.4-10.8)
[2020-10-02 15:41] LABS: INR 1.03 (0.9-1.15); Partial Thromboplastin Time 23.8 sec (23.0-31.2)
[2020-10-02 16:00] VITALS: BP 113/74
[2020-10-02] MEDS: HEPARIN DRIP/D5W 100UNITS/ML 250 ML IV SCH (16:22)
[2020-10-02] MEDS: SODIUM CHLORIDE 0.9% 1,000 ML IV SCH (17:20)
[2020-10-02 23:17] LABS: INR 1.02 (0.9-1.15); Partial Thromboplastin Time 52.8 sec (23.0-31.2)
[2020-10-03] VITALS: BP 128/68
[2020-10-03] MEDS: InsuLIN REG 1unit/0.01ml Soln (100units/ml) SC SCH ×4 (01:12→17:53)
[2020-10-03] MEDS: HEPARIN DRIP/D5W 100UNITS/ML 250 ML IV SCH ×2 (05:22→17:15)
[2020-10-03] MEDS: ACCU-CHEK COMFORT CURVE STRIP VI SCH ×4 (05:53→17:53)
[2020-10-03 07:06] LABS: Basophils # (auto) 0.1 10 ^3/uL (0-0.2); Basophils % (auto) 0.8 % (0.0-2.0); White Blood Cell 9.1 10^3/uL (4.4-10.8)
[2020-10-03 07:10] LABS: Eosinophils # (auto) 0.2 10 ^3/uL (0-0.8); Hematocrit 22.4 % (41.0-53.0); Lymphocytes # (auto) 1.6 10 ^3/uL (0.4-5.4); Lymphocytes % (auto) 17.4 % (10.0-50.0); Mean Corpuscular Hemoglobin 33.2 pg (28.0-32.0); Mean Corpuscular Hgb Conc. 35.8 g/dL (32.0-36.0); Mean Corpuscular Volume 92.8 fL (80.0-100.0); Monocytes # (auto) 0.4 10 ^3/uL (0-1.3); Monocytes % (auto) 4.7 % (0.0-12.0); Neutrophils # (auto) 6.9 10 ^3/uL (1.6-8.6); Neutrophils % (auto) 75.1 % (37.0-80.0); Platelet Count (auto) 191 10^3/uL (140-450); Red Blood Cells 2.42 10^6/uL (4.5-5.90)
[2020-10-03 07:19] LABS: Calcium 8.4 mg/dL (8.5-10.1); Potassium 4.2 mmol/L (3.5-5.1)
[2020-10-03 07:21] LABS: BUN/Creatinine Ratio 17.2
[2020-10-03 07:22] LABS: INR 1.02 (0.9-1.15)
[2020-10-03 07:54] LABS: Partial Thromboplastin Time 70.8 sec (23.0-31.2)
[2020-10-03 08:00] VITALS: BP 130/70
[2020-10-03] MEDS: LINEZOLID 600MG/300ML 300 ML IV SCH ×2 (08:01→20:30)
[2020-10-03] MEDS: Glucerna Carbsteady SHAKE Vanilla 8oz PO SCH ×3 (08:02→17:51)
[2020-10-03] MEDS: levoFLOXacin 250MG 50 ML IV SCH (09:34)
[2020-10-03] MEDS: ZINC SULFATE 220mg CAP or TAB PO SCH (09:34)
[2020-10-03] MEDS: FAMOTIDINE 20 MG TAB PO SCH (09:35)
[2020-10-03] MEDS: oxyCODONE ER 10 MG TAB PO SCH ×2 (09:35→22:00)
[2020-10-03] MEDS: CHOLECALCIFEROL (VITD3) 2,000 UNIT CAP/TAB PO SCH (09:35)
[2020-10-03] MEDS: ASCORBIC ACID 1,000 MG TAB PO SCH (09:35)
[2020-10-03] MEDS: INSULIN LANTUS (GLARGINE) 1 /0.01ml (100units/ml) SC SCH ×2 (09:37→22:00)
[2020-10-03] MEDS: HYDROmorphone HCL 2 MG/ML VL IV PRN (10:46)
[2020-10-03 12:04] LABS: INR 1.03 (0.9-1.15); Partial Thromboplastin Time 69.8 sec (23.0-31.2)
[2020-10-03] MEDS: SODIUM CHLORIDE 0.9% 1,000 ML IV SCH (14:30)
[2020-10-03 16:00] VITALS: BP 145/77
[2020-10-04] VITALS: BP 130/70
[2020-10-04] MEDS: InsuLIN REG 1unit/0.01ml Soln (100units/ml) SC SCH ×4 (00:30→17:40)
[2020-10-04] MEDS: ACCU-CHEK COMFORT CURVE STRIP VI SCH ×4 (00:30→17:33)
[2020-10-04] MEDS: ALBUTEROL SULF HFA 90MCG INH 200DOSE IN PRN ×2 (06:47→20:15)
[2020-10-04 07:16] LABS: Basophils # (auto) 0.1 10 ^3/uL (0-0.2); Eosinophils # (auto) 0.2 10 ^3/uL (0-0.8); Hemoglobin 8.2 g/dL (13.5-17.5); Monocytes # (auto) 0.4 10 ^3/uL (0-1.3); Neutrophils # (auto) 5.9 10 ^3/uL (1.6-8.6); Nucleated Red Blood Cells % 0.1 %
[2020-10-04 07:19] LABS: Basophils % (auto) 0.7 % (0.0-2.0); Eosinophils % (auto) 2.7 % (0.0-7.0); Hematocrit 23.6 % (41.0-53.0); Lymphocytes # (auto) 1.5 10 ^3/uL (0.4-5.4); Lymphocytes % (auto) 18.8 % (10.0-50.0); Mean Corpuscular Hemoglobin 32.5 pg (28.0-32.0); Mean Corpuscular Hgb Conc. 34.8 g/dL (32.0-36.0); Mean Corpuscular Volume 93.4 fL (80.0-100.0); Monocytes % (auto) 4.8 % (0.0-12.0); Platelet Count (auto) 200 10^3/uL (140-450); Red Blood Cells 2.53 10^6/uL (4.5-5.90); Red Cell Distribution Width 15.2 % (11.8-14.3); White Blood Cell 8.1 10^3/uL (4.4-10.8)
[2020-10-04 07:33] LABS: INR 1.03 (0.9-1.15)
[2020-10-04 07:39] VITALS: BP 127/61
[2020-10-04 07:44] LABS: Partial Thromboplastin Time 80.7 sec (23.0-31.2)
[2020-10-04 07:45] LABS: Potassium 4.3 mmol/L (3.5-5.1)
[2020-10-04 07:49] LABS: BUN/Creatinine Ratio 15.4
[2020-10-04] MEDS: HEPARIN DRIP/D5W 100UNITS/ML 250 ML IV SCH (07:50)
[2020-10-04] MEDS: Glucerna Carbsteady SHAKE Vanilla 8oz PO SCH ×3 (08:16→17:33)
[2020-10-04] MEDS: LINEZOLID 600MG/300ML 300 ML IV SCH (08:16)
[2020-10-04] MEDS: levoFLOXacin 250MG 50 ML IV SCH (09:51)
[2020-10-04] MEDS: CHOLECALCIFEROL (VITD3) 2,000 UNIT CAP/TAB PO SCH (09:52)
[2020-10-04] MEDS: SODIUM CHLORIDE 0.9% 1,000 ML IV SCH (09:52)
[2020-10-04] MEDS: ZINC SULFATE 220mg CAP or TAB PO SCH (09:52)
[2020-10-04] MEDS: ASCORBIC ACID 1,000 MG TAB PO SCH (09:52)
[2020-10-04] MEDS: FAMOTIDINE 20 MG TAB PO SCH (09:52)
[2020-10-04] MEDS: oxyCODONE ER 10 MG TAB PO SCH ×2 (10:24→21:51)
[2020-10-04] MEDS: INSULIN LANTUS (GLARGINE) 1 /0.01ml (100units/ml) SC SCH ×2 (10:25→22:00)
[2020-10-04 14:49] LABS: INR 0.99 (0.9-1.15); Partial Thromboplastin Time 26.7 sec (23.0-31.2)
[2020-10-04 16:00] VITALS: BP 126/69
[2020-10-04] MEDS: MORPHINE SULF INJ 2 MG/ML SYRINGE 1ML IV PRN (20:33)
[2020-10-04] MEDS: APIXABAN 5 MG TAB PO SCH (21:50)
[2020-10-05] VITALS: BP 121/68
[2020-10-05] MEDS: ACCU-CHEK COMFORT CURVE STRIP VI SCH ×5 (00:12→23:16)
[2020-10-05] MEDS: InsuLIN REG 1unit/0.01ml Soln (100units/ml) SC SCH ×5 (00:18→23:15)
[2020-10-05 07:53] VITALS: BP 125/61
[2020-10-05] MEDS: Glucerna Carbsteady SHAKE Vanilla 8oz PO SCH ×3 (08:04→17:33)
[2020-10-05] MEDS: INSULIN LANTUS (GLARGINE) 1 /0.01ml (100units/ml) SC SCH ×2 (10:00→23:13)
[2020-10-05] MEDS: levoFLOXacin 250MG 50 ML IV SCH (10:52)
[2020-10-05] MEDS: ZINC SULFATE 220mg CAP or TAB PO SCH (10:53)
[2020-10-05] MEDS: APIXABAN 5 MG TAB PO SCH ×2 (10:54→21:42)
[2020-10-05] MEDS: oxyCODONE ER 10 MG TAB PO SCH ×2 (10:54→21:42)
[2020-10-05] MEDS: CHOLECALCIFEROL (VITD3) 2,000 UNIT CAP/TAB PO SCH (10:55)
[2020-10-05] MEDS: ASCORBIC ACID 1,000 MG TAB PO SCH (10:55)
[2020-10-05] MEDS: FAMOTIDINE 20 MG TAB PO SCH (10:55)
[2020-10-05 13:00] VITALS: BP 140/67
[2020-10-05 14:47] VITALS: BP 126/78
[2020-10-05 16:00] VITALS: BP 123/76
[2020-10-05 21:00] VITALS: BP 119/63
[2020-10-06] VITALS: BP 119/63
[2020-10-06] MEDS: ACCU-CHEK COMFORT CURVE STRIP VI SCH ×2 (06:11→12:00)
[2020-10-06] MEDS: MORPHINE SULF INJ 2 MG/ML SYRINGE 1ML IV PRN (06:12)
[2020-10-06] MEDS: InsuLIN REG 1unit/0.01ml Soln (100units/ml) SC SCH ×2 (06:14→12:00)
[2020-10-06] MEDS: Glucerna Carbsteady SHAKE Vanilla 8oz PO SCH ×2 (08:00→12:22)
[2020-10-06] MEDS: APIXABAN 5 MG TAB PO SCH (09:34)
[2020-10-06] MEDS: oxyCODONE ER 10 MG TAB PO SCH (09:34)
[2020-10-06] MEDS: ZINC SULFATE 220mg CAP or TAB PO SCH (09:35)
[2020-10-06] MEDS: FAMOTIDINE 20 MG TAB PO SCH (09:35)
[2020-10-06] MEDS: CHOLECALCIFEROL (VITD3) 2,000 UNIT CAP/TAB PO SCH (09:35)
[2020-10-06] MEDS: ASCORBIC ACID 1,000 MG TAB PO SCH (09:35)
[2020-10-06] MEDS: INSULIN LANTUS (GLARGINE) 1 /0.01ml (100units/ml) SC SCH (09:45)
[2020-10-06] MEDS ORDERED: levoFLOXacin 500 MG TAB PO SCH (10:00)
[2020-10-06] MEDS ORDERED: FERROUS SULFATE 325 MG TAB PO ONE (12:30)
[2020-10-06 15:27] VITALS: BP 109/62
[2020-10-06] MEDS ORDERED: FERROUS SULFATE 325 MG TAB PO SCH (18:00)
[2020-10-11] MEDS ORDERED: APIXABAN 5 MG TAB PO SCH (22:00)
== END 2020-10-06 16:10 | DRG 853 ==
LOC: EDBD 11:36 → ER 11:36 → OVERFLOW 11:37 → TELE-WESTW 09-23 11:44
PROVIDERS: ADMIT Nurse Practitioner Acute Care; ATTEND Internal Medicine
PROC: XW033E5 Introduction of Remdesivir Anti-infective into Peripheral Vein, Percutaneous Approach, New Technology Group 5 (ICD-10-PCS; principal; 2020-09-23)
PROC: 047K3Z1 Dilation of Right Femoral Artery using Drug-Coated Balloon, Percutaneous Approach (ICD-10-PCS; 2020-09-23)
PROC: 047M3Z1 Dilation of Right Popliteal Artery using Drug-Coated Balloon, Percutaneous Approach (ICD-10-PCS; 2020-09-23)
PROC: 047P3Z1 Dilation of Right Anterior Tibial Artery using Drug-Coated Balloon, Percutaneous Approach (ICD-10-PCS; 2020-09-23)
PROC: 3E053PZ Introduction of Platelet Inhibitor into Peripheral Artery, Percutaneous Approach (ICD-10-PCS; 2020-09-23)
PROC: 3E053GC Introduction of Other Therapeutic Substance into Peripheral Artery, Percutaneous Approach (ICD-10-PCS; 2020-09-23)
PROC: B4101ZZ Fluoroscopy of Abdominal Aorta using Low Osmolar Contrast (ICD-10-PCS; 2020-09-23)
PROC: XW13325 Transfusion of Convalescent Plasma (Nonautologous) into Peripheral Vein, Percutaneous Approach, New Technology Group 5 (ICD-10-PCS; 2020-09-24)
PROC: 0Y6C0Z3 Detachment at Right Upper Leg, Low, Open Approach (ICD-10-PCS; 2020-09-29)
DX: A41.9 Sepsis, unspecified organism (principal); U07.1 COVID-19; J12.82 Pneumonia due to coronavirus disease 2019; J96.01 Acute respiratory failure with hypoxia; N17.0 Acute kidney failure with tubular necrosis; I21.4 Non-ST elevation (NSTEMI) myocardial infarction; D65 Disseminated intravascular coagulation [defibrination syndrome]; E11.10 Type 2 diabetes mellitus with ketoacidosis without coma; I50.20 Unspecified systolic (congestive) heart failure; D68.59 Other primary thrombophilia; I13.0 Hypertensive heart and chronic kidney disease with heart failure and stage 1 through stage 4 chronic kidney disease, or unspecified chronic kidney disease; E11.52 Type 2 diabetes mellitus with diabetic peripheral angiopathy with gangrene; I82.431 Acute embolism and thrombosis of right popliteal vein; I82.412 Acute embolism and thrombosis of left femoral vein; Z20.822 Contact with and (suspected) exposure to COVID-19; D89.839 Cytokine release syndrome, grade unspecified; E78.5 Hyperlipidemia, unspecified; G62.9 Polyneuropathy, unspecified; K72.90 Hepatic failure, unspecified without coma; E11.22 Type 2 diabetes mellitus with diabetic chronic kidney disease; E66.9 Obesity, unspecified; D64.9 Anemia, unspecified; Z68.34 Body mass index [BMI] 34.0-34.9, adult; W18.39XA Other fall on same level, initial encounter; Y93.89 Activity, other specified; Y92.89 Other specified places as the place of occurrence of the external cause; Y99.8 Other external cause status; I99.8 Other disorder of circulatory system; I70.209 Unspecified atherosclerosis of native arteries of extremities, unspecified extremity; N18.31 Chronic kidney disease, stage 3a
CPT/HCPCS: 36415; 36600; 71045; 80048; 80053; 81001; 82306; 82550; 82728; 82805; 82962; 83036; 83615; 83735; 83930; 84100; 84443; 84484; 85007; 85025; 85027; 85379; 85610; 85730; 86141; 86850; 86900; 86901; 87040; 87426; 87804; 93005; 93926; 93970; 94640; 96365; 96367; 96372; 97110; 97163; 97530; 99152; 99153; A4565; C1769; G0378; J0696; J1100; J1815; J2001; J2250; J2405; J2543; J2704; J3490; Q9967

== ENCOUNTER 2024-03-04 13:15 | Emergency (ER) | payer OTHER ==
[~2024-03-04] VITALS: Ht 172.7 cm; Wt 113.6 kg
[~2024-03-04 13:15] MED LIST: APIX2.5T PO; CEPH250C PO; FENT12DI TD; FURO40TA4 PO; LISI20TA56 PO; METH-532 PO; ONDA-188 PO; OXY10CRT PO; TEST1INJ9
[2024-03-04 14:10] LABS: Base Excess 2.5 mmol/L (-2.0-2.0)
[2024-03-04 14:13] LABS: Basophils # (auto) 0 10 ^3/uL (0-0.2); Basophils % (auto) 0.3 % (0.0-2.0); Eosinophils # (auto) 0.2 10 ^3/uL (0-0.8); Eosinophils % (auto) 2.5 % (0.0-7.0); Hematocrit 34.5 % (41.0-53.0); Lymphocytes # (auto) 1.5 10 ^3/uL (0.4-5.4); Lymphocytes % (auto) 15.2 % (10.0-50.0); Mean Corpuscular Hemoglobin 31.5 pg (28.0-32.0); Mean Corpuscular Hgb Conc. 34.8 g/dL (32.0-36.0); Mean Corpuscular Volume 90.7 fL (80.0-100.0); Monocytes # (auto) 0.6 10 ^3/uL (0-1.3); Monocytes % (auto) 6.2 % (0.0-12.0); Neutrophils # (auto) 7.4 10 ^3/uL (1.6-8.6); Neutrophils % (auto) 75.8 % (37.0-80.0); Nucleated Red Blood Cells % 0.1 %; Red Blood Cells 3.81 10^6/uL (4.5-5.90); Red Cell Distribution Width 14.9 % (11.8-14.3); White Blood Cell 9.8 10^3/uL (4.4-10.8)
[2024-03-04 14:49] LABS: Alanine Aminotransferase 28 U/L (7-40); Albumin 3.9 g/dL (3.2-4.8); Alkaline Phosphatase 84 U/L (46-116); Anion Gap 6 (5-15); Aspartate Aminotransferase 18 U/L (13-40); BUN/Creatinine Ratio 17.7 (10.0-20.0); Blood Urea Nitrogen 50 mg/dL (9-23); Calcium 9.6 mg/dL (8.5-10.1); Carbon Dioxide 31 mmol/L (20-30); Chloride 95 mmol/L (98-107); Magnesium 1.7 mg/dL (1.6-2.6); Potassium 4.2 mmol/L (3.5-5.1); Sodium 132 mmol/L (136-145)
[2024-03-04 14:50] LABS: Bilirubin, Total 0.5 mg/dL (0.2-1.0); Total Protein 6.4 g/dL (5.7-8.2)
[2024-03-04 14:57] LABS: Glucose 519 mg/dL (74-106); Lactic Acid w/Reflex 2.1 mmol/L (0.4-2.0)
[2024-03-04] MEDS: SODIUM CHLORIDE 0.9% 500 ML IV ONE (17:07)
[2024-03-04] MEDS: InsuLIN REG 1unit/0.01ml Soln (100units/ml) IV ONE (17:40)
[2024-03-04 20:02] VITALS: BP 143/71; PULSE 66; RESP 16; TEMP 98.7; O2SAT 94
[2024-03-04] MEDS: HYDROcodone-ACET 5/325MG TAB PO ONE (20:08)
== END 2024-03-04 20:16 | disposition home or self-care (01) ==
LOC: EDUNIT# 13:15 → ER 13:15 → EDBD 13:15 → ER 20:16
DX: E11.65 Type 2 diabetes mellitus with hyperglycemia (principal); I10 Essential (primary) hypertension; E78.5 Hyperlipidemia, unspecified; Z98.890 Other specified postprocedural states; Z79.899 Other long term (current) drug therapy
CPT/HCPCS: 36415; 36600; 80053; 82010; 82805; 82962; 83605; 83735; 84484; 85025; 96374; 99283; J1815